=== PATIENT | female | born 1990 ===

== ENCOUNTER 2020-10-30 05:47 | Day surgery (SDC) | payer OTHER ==
[2020-10-30] MEDS ORDERED: DUI500 PO (18:07)
[2020-10-30] MEDS ORDERED: PERCOCET 5-3251 EACH PO (18:07)
[2020-10-30] MEDS ORDERED: ALEVE220 M1 PO (18:07)
== END 2020-10-30 20:30 | disposition home or self-care (01) ==
LOC: CIR.AMB 05:47
PROVIDERS: ATTEND Orthopaedic Surgery
DX: S52.532A Colles' fracture of left radius, initial encounter for closed fracture (principal); S52.572A Other intraarticular fracture of lower end of left radius, initial encounter for closed fracture; S52.612A Displaced fracture of left ulna styloid process, initial encounter for closed fracture; Z20.822 Contact with and (suspected) exposure to COVID-19
CPT/HCPCS: 20902; 25609; 25652; C1776